=== PATIENT | male | born 1955 | race Caucasian/White ===

== ENCOUNTER 2016-10-26 16:06 | Emergency (ER) | payer MEDICARE, OTHER ==
[~2016-10-26] VITALS: Ht 170.2 cm; Wt 96.8 kg
[2016-10-26 16:22] LABS: GLUCOSE,POINT OF CARE 144 MG/DL (70-110)
[2016-10-26] MEDS ORDERED: ADV100 IH (16:22)
[2016-10-26] MEDS ORDERED: METO-323 PO (16:22)
[2016-10-26] MEDS ORDERED: DOCU50LI12 PO (16:22)
[2016-10-26] MEDS ORDERED: ASPI81TA42 PO (16:22)
[2016-10-26] MEDS ORDERED: CHLO1LIQ2 MC (16:22)
[2016-10-26] MEDS ORDERED: KDUR10 PO (16:22)
[2016-10-26] MEDS ORDERED: AMIT25TA9 PO (16:22)
[2016-10-26] MEDS ORDERED: GABA-531 PO (16:22)
[2016-10-26] MEDS ORDERED: [UNRECOGNIZED DRUG - CODE] PO (16:22)
[2016-10-26] MEDS ORDERED: GLIP10 PO (16:22)
[2016-10-26] MEDS ORDERED: CLON.3 PO (16:22)
[2016-10-26] MEDS ORDERED: FURO40 PO (16:22)
[2016-10-26] MEDS ORDERED: SPIR25 PO (16:22)
[2016-10-26] MEDS ORDERED: LOVA20 PO (16:22)
[2016-10-26] MEDS ORDERED: LINA72CA PO (16:22)
[2016-10-26 19:57] LABS: APPEARANCE,URINE CLEAR (CLEAR); GLUCOSE, URINE (UA) NEGATIVE (NEGATIVE); KETONES,URINE NEGATIVE (NEGATIVE); LEUKOCYTE ESTERASE ,URINE NEGATIVE (NEGATIVE); OCCULT BLOOD,URINE NEGATIVE (NEGATIVE); PROTEIN,URINE NEGATIVE (NEGATIVE)
[2016-10-26 20:02] LABS: BASOPHILS % (AUTO) 0.3 % (0.0-2.0); EOSINOPHILS % (AUTO) 0.5 % (1.0-6.0); HEMOGLOBIN 13.1 g/dL (13.5-17.5); LYMPHOCYTES # (AUTO) 1.9 K/uL (1.0-4.8); LYMPHOCYTES % (AUTO) 18.9 % (22.0-44.0); MEAN CORPUSCULAR HEMOGLOBIN 30.2 pg (26.0-34.0); MEAN CORPUSCULAR HGB CONC 34.6 G/dL (31.0-37.0); MEAN CORPUSCULAR VOLUME 87 fL (80-100); MONOCYTES % (AUTO) 9.7 % (2.0-9.0); NEUTROPHILS # (AUTO) 7.1 K/uL (1.8-7.7); NEUTROPHILS % (AUTO) 70.6 % (40.0-70.0); PLATELET COUNT (AUTO) 260 K/uL (150-450); RED BLOOD CELL COUNT(AUTO) 4.35 MIL/uL (4.50-5.90); RED CELL DISTRIBUTION WIDTH 12.3 % (11.5-14.5); WHITE BLOOD COUNT (AUTO) 10.1 K/uL (4.5-11.0)
[2016-10-26 20:07] LABS: CALCIUM, TOTAL 10.1 mg/dL (8.8-10.5); CREATININE 3.95 mg/dL (0.60-1.30); POTASSIUM 4.4 mmol/L (3.5-5.1)
[2016-10-26 20:11] LABS: ADD UA MICROSCOPIC NO
[2016-10-26 20:14] LABS: ALBUMIN 3.7 g/dL (3.4-5.0); BILIRUBIN,TOTAL 0.5 mg/dL (0.1-1.0); TOTAL PROTEIN, SERUM 9.1 g/dL (6.4-8.2)
[2016-10-26 21:06] VITALS: BP 133/89
== END 2016-10-26 21:05 | disposition home or self-care (01) ==
LOC: EMS 16:08
DX: M54.5 Low back pain (principal); M10.9 Gout, unspecified; I11.0 Hypertensive heart disease with heart failure; I50.9 Heart failure, unspecified; E11.9 Type 2 diabetes mellitus without complications; E78.00 Pure hypercholesterolemia, unspecified; Z79.82 Long term (current) use of aspirin; Z88.6 Allergy status to analgesic agent; Z88.8 Allergy status to other drugs, medicaments and biological substances
CPT/HCPCS: 82962; 99284